=== PATIENT | male | born 1950 | race Caucasian/White ===

== ENCOUNTER → 2024-01-19 08:07 | Outpatient (REF) | payer OTHER, SELFPAY | LOC: RAD 08:07 | PROVIDERS: ATTENDING PHYSICIAN Otolaryngology Facial Plastic Surgery; FAMILY PHYSICIAN Family Medicine | DX: R13.12 Dysphagia, oropharyngeal phase (principal) | CPT/HCPCS: 74221 ==

== ENCOUNTER 2024-03-02 05:59 | Day surgery (SDC) | payer OTHER, SELFPAY ==
[2024-02-17 08:33] VITALS: BMI 37.6
[2024-02-17 08:51] LABS: Hematocrit 46.4 % (39.0-52.0); Hemoglobin 15.3 g/dL (13.0-18.0); Mean Corpuscular Hgb 29.2 pg (27.0-31.0); Mean Corpuscular Volume 88.5 fL (80.0-94.0); Mean Platelet Volume 10.3 fL (7.4-10.4); Platelet Count 184 10^3/uL (130-400); Red Blood Cell Count 5.24 10^6/uL (4.70-6.10); Red Cell Dist. Width 13.4 % (11.5-14.5); White Blood Cell Count 7.6 10^3/uL (4.8-10.8)
[2024-02-17 09:02] LABS: ALT (SGPT) 42 U/L (0-50); AST (SGOT) 32 U/L (17-59); Albumin 4.3 g/dl (3.5-5.0); Alkaline Phosphatase 95 U/L (38-126); Blood Urea Nitrogen 18 mg/dl (9-20); Calcium 9.5 mg/dl (8.4-10.2); Carbon Dioxide 29 mmol/L (22-30); Chloride 103 mmol/L (98-107); Estimated Creatinine Clearance 74 ml/min; Glucose 112 mg/dl (70-99); Sodium 138 mmol/L (135-145); Total Bilirubin 0.8 mg/dl (0.2-1.3); Total Protein 6.7 g/dl (6.3-8.2); eGFR > 60.00
[2024-03-02] VITALS (8 sets, daily range): BP systolic 89–227; BP diastolic 22–189; BMI 37.6
[2024-03-02] MEDS: NORMOSOL-R 1000 IV (06:35)
[2024-03-02 06:37] LABS: Glucose - Point of Care 130 mg/dl (70-99)
[2024-03-02 08:38] LABS: Glucose - Point of Care 133 mg/dl (70-99)
== END 2024-03-02 10:30 | disposition home or self-care (01) ==
LOC: SDS 05:59
PROVIDERS: ATTENDING PHYSICIAN Otolaryngology Facial Plastic Surgery; FAMILY PHYSICIAN Family Medicine
DX: D14.1 Benign neoplasm of larynx (principal); J04.0 Acute laryngitis; R13.12 Dysphagia, oropharyngeal phase
CPT/HCPCS: 31536; 43202; 88305; 88312; 36415; 80053; 82962; 85027; 88341; 88342

== ENCOUNTER 2024-10-19 17:53 | Emergency (ER) | payer OTHER, SELFPAY ==
[2024-10-19 18:08] VITALS: BP 159/77
[2024-10-19 20:59] VITALS: BMI 38.4
[2024-10-19 21:08] VITALS: BP 143/79
--- NOTE | 2024-10-19 21:42 | ED.GENMED ---
History of Present Illness
General
Chief Complaint: Eye Problems
Time Seen by Provider: 10/19/24 21:07
History of Present Illness
History of Present Illness:
74-year-old male presents to the emergency department for evaluation of right eye pain redness and swelling that is been worsening over the past month. 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
lower right eyelid entropion, had surgical excision of several eyelashes with subtle improvement however gradually the symptoms worsened again. He was referred to [facility] eye however does not have an appointment there until February. Over the past 3
days has had increasing pain and swelling, has been using topical erythromycin without improvement. Denies blurry or double vision. No fevers or chills.
Past History
Past History
ED Past Medical History: Psychiatric (Bipolar disorder), Other (allergic rxn) and Other (Kidney stones, [place])
ED Past Surgical History: None
Social History
Tobacco: Former smoker
Alcohol: Occasional
Drug: None
Living: with family
Family History
Family History: CAD
Review of Systems
Review of Systems
Allergies reviewed?: Yes
All Other Systems: ROS reviewed and negative except as documented in HPI and ROS
Phy Exam
Physical Exam
Physical Exam:
GEN: Well appearing, NAD, WDWN
HEENT: Oral mucosa moist, no scleral icterus
Eyes: Significant conjunctival injection on the right predominantly of the lower sclera, no hyphema or hypopyon, normal extraocular motion. Mild lower eyelid edema with no purulent discharge
Cardiac: Regular rate
Lung: No respiratory distress, no tachypnea
MSK: No gross deformity or injuries
Skin: Good color, no pallor or jaundice, no rashes
Neuro: AO x3, moves all extremities freely
Psych: Calm, cooperative
Course
Orders/Labs/Results
Orders:
Orders
10/19/24 21:54
Fluorescein Sodium [Ful-Abril] 1 mg OPHTH NOW STA
Tetracaine HCl [Tetracaine 0.5% Ophthalmic Solution] See Dose Instructions OPHTH ONCE ONE
10/19/24 22:23
Ciprofloxacin HCl [Ciloxan 0.3% Ophthalmic Solution] See Dose Instructions OPHTH NOW STA
Vital Signs
Initial and Last Documented VS:
Initial Vital Signs
Temp Pulse Resp BP Pulse Ox
98.5 F 74 18 159/77 98
10/19/24 18:08 10/19/24 18:08 10/19/24 18:08 10/19/24 18:08 10/19/24 18:08
Last Documented Vital Signs
Temp Pulse Resp BP Pulse Ox
98.0 F 78 18 143/79 98
10/19/24 20:59 10/19/24 22:25 10/19/24 22:25 10/19/24 21:08 10/19/24 22:25
MDM/Problems Addressed
MDM/Problems Addressed:
Patient has significant conjunctival injection/eyelid swelling however no purulent discharge and his visual acuity is intact. No focal fluorescein uptake on exam. Will switch the patient to topical ciprofloxacin from erythromycin and add oral
antibiotics due to the lower lid blepharitis. Encouraged eye doctor follow-up as soon as possible
*Critical Care Note
Total Time (30-74mins, 75-104mins- exclusive of procedures): Not Applicable
ED Attending Note
-
Portions of this chart may have been created with voice recognition software.� Occasional wrong word or��sound alike� substitutions may have occurred due to the inherent limitations of voice recognition software.
Discharge Plan
Departure
Patient Disposition: Home (Routine Discharge)
Date of Disposition: 10/19/24
Time of Disposition: 22:12
Patient with high blood pressure during this ER visit?: No
Discharge Problem:
Conjunctivitis
Instructions: Conjunctivitis ([place]) (DC)
Prescriptions:
New
cephalexin 500 mg capsule
500 mg PO Q8H 5 Days Qty: 15 0RF
No Action
lamotrigine [Lamictal] 200 MG tablet
200 mg PO HS
metformin 500 mg Tablet Extended Release 24 Hr
500 mg PO QPM
rosuvastatin 20 mg Tablet
20 mg PO DAILY
erythromycin 5 mg/gram (0.5 %) Ointment
0.25 inch OPHTHALMIC (EYE) BID
Referrals:
Teressa Sarmiento MD [Family Provider] -
Activity Restrictions/Additional Instructions:
Use the eye drops, 2 drops into the eye every 2 hours while awake for the next 2 days, then every 4 hours for the next 5 days
Call your eye doctor tomorrow morning for a follow up appointment
Interventions
Interventions:
*Risk Screen - Suicide Last Done: 10/19/24 18:08
*General Assessment Last Done: 10/19/24 18:08
*Neglect/Abuse Screening Last Done: 10/19/24 18:08
ED- Fall Risk Assessment Last Done: 10/19/24 22:25
*ED COVID-19 Vaccine History Last Done: 10/19/24 21:09
*Nursing Disposition Last Done: 10/19/24 22:25
Discharge Date and Time
Discharge Date/Time: 10/19/24 22:47
Print Language: MALAYSIAN
[2024-10-19] MEDS: TETRACAINE 0.5% OPHTHALMIC SOLUTION 1 DROP OPHTH (22:11)
[2024-10-19] MEDS: FUL-GLO 1 MG OPHTH (22:11)
[2024-10-19] MEDS: CILOXAN 0.3% OPHTHALMIC SOLUTION 2 DROP OPHTH (22:46)
== END 2024-10-19 22:47 | disposition home or self-care (01) ==
LOC: EMR 17:53
PROVIDERS: EMERGENCY PHYSICIAN Emergency Medicine; FAMILY PHYSICIAN Family Medicine
DX: H10.9 Unspecified conjunctivitis (principal); F31.9 Bipolar disorder, unspecified; I25.2 Old myocardial infarction; Z82.49 Family history of ischemic heart disease and other diseases of the circulatory system; Z87.442 Personal history of urinary calculi; Z87.891 Personal history of nicotine dependence
CPT/HCPCS: 99282

== ENCOUNTER 2025-02-02 20:46 | Emergency (ER) | payer OTHER, SELFPAY ==
[2025-02-02 20:58] VITALS: BP 120/88
[2025-02-02 21:41] LABS: % Basophils 0.6 % (0-2); % Eosinophils 1.9 % (0-6); % Immature Granulocytes 0.5 % (0-0.5); % Lymphocytes 8.9 % (20.5-51.1); % Monocytes 9.9 % (1.7-9.3); % Neutrophils 78.2 % (42.2-75.2); Absolute Eosinophils 0.1 10^3/uL (0-0.7); Absolute Lymphocytes 0.6 10^3/uL (1.2-3.4); Absolute Monocytes 0.6 10^3/uL (0.1-0.6); Hematocrit 46.3 % (39.0-52.0); Hemoglobin 15.7 g/dL (13.0-18.0); Mean Corp Hgb Conc. 33.9 g/dL (33.0-37.0); Mean Corpuscular Volume 85.4 fL (80.0-94.0); Mean Platelet Volume 10.1 fL (7.4-10.4); Nucleated Red Blood Cells % 0 % (-); Platelet Count 137 10^3/uL (130-400); Red Blood Cell Count 5.42 10^6/uL (4.70-6.10); Red Cell Dist. Width 13.3 % (11.5-14.5); White Blood Cell Count 6.4 10^3/uL (4.8-10.8)
[2025-02-02 21:49] LABS: COVID-19 Antigen Negative (Negative)
[2025-02-02 21:56] LABS: ALT (SGPT) 21 U/L (0-50); AST (SGOT) 24 U/L (17-59); Albumin 4.8 g/dl (3.5-5.0); Alkaline Phosphatase 87 U/L (38-126); Blood Urea Nitrogen 10 mg/dl (9-20); Calcium 9.7 mg/dl (8.4-10.2); Carbon Dioxide 27 mmol/L (22-30); Chloride 102 mmol/L (98-107); Glucose 124 mg/dl (70-99); Potassium 4.3 mmol/L (3.5-5.1); Sodium 140 mmol/L (135-145); Total Bilirubin 0.8 mg/dl (0.2-1.3); Total Protein 6.7 g/dl (6.3-8.2); eGFR > 60.00
[2025-02-02 21:58] LABS: Troponin I < 0.012 ng/ml
--- NOTE | 2025-02-03 00:15 | ED.GENMED ---
History of Present Illness
General
Chief Complaint: Cough
Source: patient
Exam Limitations: none
Time Seen by Provider: 02/02/25 23:59
History of Present Illness
History of Present Illness:
74-year-old male presents with 1 days worth of fever chest tightness cough. The cough is nonproductive. He denies hemoptysis. No recent travel or surgery. No leg swelling or calf pain. No known sick contacts. He has a history of
[id number] diabetes
Past History
Past History
ED Past Medical History: Psychiatric (Bipolar disorder), Other (allergic rxn) and Other (Kidney stones, [place])
ED Past Surgical History: None
Social History
Tobacco: Former smoker
Alcohol: Occasional
Drug: None
Living: with family
Family History
Family History: CAD
Phy Exam
Physical Exam
Physical Exam:
General: Well-appearing male no acute respiratory distress
HEENT: Normocephalic atraumatic
Heart: Regular rate and rhythm
Lungs: Subtle wheeze on expiration. No rales
Extremities: No cyanosis
SKin: warm, no rash
Course
Orders/Labs/Results
Orders:
Orders
02/02/25 21:01
Electrocardiogram (*1) Urgent
Reason for Study: Chest Pain
EKG- Treatment ONCE
02/02/25 21:14
COVID-19 Antigen Urgent
Source: Nasal Swab
Complete Blood Count/With Diff Urgent
Comprehensive Metabolic Panel Urgent
Troponin I Urgent
Influenza A+B Rapid Molecular Urgent
ANAYA Source: Nasal Swab
Specimen Description:
02/02/25 22:45
CR Chest - 2 Views Urgent
Comment:
Reason For Exam: cough, pain
02/03/25 00:12
Ipratropium/Albuterol Sulfate [Duoneb] 3 ml INH R NOW STA
Abnormal Lab Results
02/02/25
21:14
Absolute Lymphs (auto) 0.6 L 10^3/uL
(1.2-3.4)
Neutrophils % 78.2 H %
(42.2-75.2)
Lymphocytes % 8.9 L %
(20.5-51.1)
Monocytes % 9.9 H %
(1.7-9.3)
Glucose 124 H mg/dl
(70-99)
02/02/25 21:14
02/02/25 21:14
Vital Signs
Initial and Last Documented VS:
Initial Vital Signs
Temp Pulse Resp BP Pulse Ox
98.8 F 103 20 120/88 96
02/02/25 20:58 02/02/25 20:58 02/02/25 20:58 02/02/25 20:58 02/02/25 20:58
Last Documented Vital Signs
Temp Pulse Resp BP Pulse Ox
98.8 F 90 16 136/78 95
02/02/25 20:58 02/03/25 00:46 02/03/25 00:46 02/03/25 00:46 02/03/25 00:46
MDM/Problems Addressed
Differential Diagnosis Includes:
Cough. Subtle wheeze on exam consider bronchitis versus flu versus COVID versus pneumonia
COVID/flu are negative. Chest x-ray is reviewed personally by me and is negative for acute finding. Cardiac workup was included with negative troponin. Labs are otherwise normal vital signs are normal here. Try DuoNeb
*Critical Care Note
Total Time (30-74mins, 75-104mins- exclusive of procedures): Not Applicable
Update Note
Update Note:
Chest x-ray officially read by radiology and is negative. Patient notes slight improvement after nebulizer. Suspect underlying bronchitis. He is a diabetic. Will cover with albuterol and Zithromax and a short course of steroids. No indication
for admission. Stable for the
ED Attending Note
-
Portions of this chart may have been created with voice recognition software.� Occasional wrong word or��sound alike� substitutions may have occurred due to the inherent limitations of voice recognition software.
Discharge Plan
Departure
Patient Disposition: Home (Routine Discharge)
Date of Disposition: 02/03/25
Time of Disposition: 02:06
Patient with high blood pressure during this ER visit?: No
Discharge Problem:
Acute bronchitis
Instructions: Acute Bronchitis, Adult (DC)
Prescriptions:
New
albuterol sulfate 90 mcg/actuation aerosol powdr breath activated
2 inh inhalation QID PRN (Reason: shortness of breath) Qty: 1 0RF
azithromycin [Zithromax Z-Celestino] 250 mg tablet
250 mg PO DAILY Qty: 6 0RF
prednisone 20 mg tablet
40 mg PO DAILY 5 Days Qty: 10 0RF
No Action
lamotrigine [Lamictal] 200 MG tablet
200 mg PO HS
metformin 500 mg Tablet Extended Release 24 Hr
500 mg PO QPM
rosuvastatin 20 mg Tablet
20 mg PO DAILY
erythromycin 5 mg/gram (0.5 %) Ointment
0.25 inch OPHTHALMIC (EYE) BID
cephalexin 500 mg capsule
500 mg PO Q8H 5 Days Qty: 15 0RF
Referrals:
Teressa Sarmiento MD [Family Provider] -
Activity Restrictions/Additional Instructions:
Stay hydrated. use antibiotic and steroid as directed. Use inhaler as needed. Return if worse otherwise follow-up with your doctor
Interventions
Interventions:
ED- Pulmonary Assessment Last Done: 02/03/25 00:46
Discharge Date and Time
Print Language: CITIZEN OF [place]
[2025-02-03] MEDS: DUONEB 3 ML INH (00:23)
[2025-02-03 00:46] VITALS: BP 136/78
[2025-02-03 02:18] VITALS: BP 119/104
== END 2025-02-03 02:25 | disposition home or self-care (01) ==
LOC: EMR 20:46
PROVIDERS: Emergency Medicine; EMERGENCY PHYSICIAN Emergency Medicine; FAMILY PHYSICIAN Family Medicine
DX: J20.9 Acute bronchitis, unspecified (principal); E11.9 Type 2 diabetes mellitus without complications; Z87.891 Personal history of nicotine dependence; Z11.52 Encounter for screening for COVID-19
CPT/HCPCS: 94640; 99285; 71046; 80053; 84484; 85025; 87502; 87811; 93005